=== PATIENT | male | born 1980 | race Caucasian/White ===

== ENCOUNTER 2016-11-26 11:37 | Emergency (ER) | payer MEDICARE, MEDICAID ==
[2016-11-26 11:44] VITALS: BP 146/79
[2016-11-26] MEDS ORDERED: Clindamycin CAP* 150 MG PO ONE (12:58)
--- NOTE | 2016-11-26 13:50 | ED ---
Skin Complaint - HPI Summary HPI Summary: Patient presents with a red bump on his abdomen that has become progressively painful over the last 5 days. He has a history of these bumps in the crease of his abdomen since having his gall bladder removed 2 years ago. He usually manages them by squeezing them and washing them, but this particular bump did not improve after he did this. Instead, it has become progressively painful. There has been drainage without increased redness. No fever, chills, N/V/D. - History of Current Complaint Chief Complaint: EDGeneral Time Seen by Provider: 11/26/16 11:57 Stated Complaint: ABSCESSES ON ABD Hx Obtained From: Patient Onset/Duration: Started Days Ago - 5 Timing: Constant Onset Severity: Mild Current Severity: Moderate Skin Location: Discrete, Abdomen Character: Pain, Redness, Raised Aggravating Symptom(s): Touch Alleviating Symptom(s): Nothing Associated Signs & Symptoms: Tenderness - Allergy/Home Medications Allergies/Adverse Reactions: Allergies Allergy/AdvReac Type Severity Reaction Status Date / Time Sulfamethoxazole Allergy Swelling Verified 01/11/13 11:21 w/Trimethoprim [From Bactrim] PMH/Surg Hx/FS Hx/Imm Hx Endocrine/Hematology History: Denies: Hx Diabetes Cardiovascular History: Reports: Hx Hypertension Denies: Hx Pacemaker/ICD Respiratory History: Reports: Hx Sleep Apnea - ?? NOT SURE GI History: Reports: Hx Gall Bladder Disease, Hx Gastroesophageal Reflux Disease - ON MEDICATION FOR, Hx Ulcer Musculoskeletal History: Reports: Hx Arthritis Sensory History: Denies: Hx Contacts or Glasses, Hx Hearing Aid Opthamlomology History: Denies: Hx Contacts or Glasses Neurological History: Reports: Hx Migraine - LAST ON 01/10/13-STATES HAS 3 CRUSHED VERTABRAE IN NECK Psychiatric History: Reports: Hx Depression - SLIGHT PER PATIENT Denies: Hx Panic Disorder - Surgical History Surgery Procedure, Year, and Place: APPENDECTOMY A CHILD-. LEFT KNEE SURGERY -[facility]. VASECTOMY-OFFICE. NECK SURGERY - Fusion with plate-WAY. GALLBLADDER -[facility] Hx Anesthesia Reactions: Yes - SEVERE N/V- LAST SURGERY- NECK SURGERY WAS PREMEDICATED- STATESWORKED WELL Infectious Disease History: No Infectious Disease History: Denies: Traveled Outside the [place] in Last 30 Days - Family History Known Family History: Positive: Hypertension - Social History Occupation: Employed Part-time Lives: With Family Alcohol Use: None Substance Use Type: Reports: None, Marijuana Smoking Status (MU): Never Smoked Tobacco Review of Systems Negative: Fever, Chills Positive: Other - pea sized lesion on suprapubic abdomen All Other Systems Reviewed And Are Negative: Yes Physical Exam Triage Information Reviewed: Yes Vital Signs On Initial Exam: Initial Vitals Temp Pulse Resp BP Pulse Ox 97.0 F 71 20 146/79 96 11/26/16 11:40 11/26/16 11:40 11/26/16 11:40 11/26/16 11:40 11/26/16 11:40 Appearance: Positive: Pain Distress, Obese Skin: Positive: Warm, Skin Color Reflects Adequate Perfusion, Dry, Tender - Pea size lesion without active drainage, Soft Head/Face: Positive: Normal Head/Face Inspection Eyes: Positive: EOMI, CASSY, Conjunctiva Clear ENT: Positive: Hearing grossly normal Respiratory/Lung Sounds: Positive: Breath Sounds Present Cardiovascular: Positive: RRR Abdomen Description: Positive: Soft. Negative: Distended, Guarding Bowel Sounds: Positive: Present Neurological: Positive: Sensory/Motor Intact, Alert, Oriented to Person Place, Time, NV Bundle Intact Distally, Normal Gait Psychiatric: Positive: Affect/Mood Appropriate AVPU Assessment: Alert Diagnostics - Vital Signs Vital Signs Temp Pulse Resp BP Pulse Ox 11/26/16 11:40 97.0 F 71 20 146/79 96 - Laboratory Lab Statement: Any lab studies that have been ordered have been reviewed, and results considered in the medical decision making process. Course/Dx - Differential Diagnoses - Skin Complaint Differential Diagnoses: Abscess, Cellulitis, Contact Dermatitis, Local Allergic Reaction, MRSA, Urticaria - Diagnoses Provider Diagnoses: Abscess Discharge - Discharge Plan Condition: Stable Disposition: HOME Prescriptions: Clindamycin Cap(NF) [Cleocin 300 mg Cap(NF)] 300 mg PO QID #39 cap Ondansetron ODT TAB* [Zofran Odt TAB*] 4 mg PO Q8H PRN #9 tab.odt PRN Reason: Nausea Patient Education Materials: MRSA (Methicillin Resistant Staphylococcus Aureus ) (ED) Referrals: Beth Meléndez PA [Primary Care Provider] - Additional Instructions: Please take the medication provided until it is completely gone. Use soap and water washes with warm compresses daily over your wound. Follow-up with a primary care provider or call the number provided to establish care with a regular provider. Return to the emergency department if your symptoms worsen.
== END 2016-11-26 14:33 | disposition home or self-care (01) ==
LOC: ED 11:37
DX: R11.0 Nausea (principal)
CPT/HCPCS: 99282; A9270-GY

== ENCOUNTER 2017-05-18 13:06 | Emergency (ER) | payer MEDICAID, MEDICARE ==
[2017-05-18] MEDS ORDERED: Ketorolac INJ* 30 MG/ML 1 ML VIAL IV ONE (14:24)
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
--- NOTE | 2017-05-18 14:46 | RAD ---
INDICATION: Left shoulder injury COMPARISON: None TECHNIQUE: Routine frontal, Y and axial views were obtained. FINDINGS: The bony structures, joint spaces, and soft tissues are normal for age. IMPRESSION: NEGATIVE EXAMINATION.
--- NOTE | 2017-05-18 14:47 | RAD ---
INDICATION: Left elbow injury COMPARISON: None TECHNIQUE: AP, lateral, and oblique views were obtained. FINDINGS: The bony structures, joint spaces, and soft tissues are normal for age. IMPRESSION: NO ACUTE BONY FINDINGS.
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
[2017-05-18] MEDS ORDERED: HYDROmorphone* 1 MG/ML 1 ML SYR IV ONE (15:56)
[2017-05-18] MEDS ORDERED: Ondansetron INJ* 2 MG/ML VIAL IV ONE (15:56)
[2017-05-18 17:20] VITALS: BP 106/63
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
== END 2017-05-18 17:38 | disposition home or self-care (01) ==
LOC: ED 13:06
DX: S49.92XA Unspecified injury of left shoulder and upper arm, initial encounter (principal); S63.501A Unspecified sprain of right wrist, initial encounter; S16.1XXA Strain of muscle, fascia and tendon at neck level, initial encounter; V58.5XXA Driver of pick-up truck or van injured in noncollision transport accident in traffic accident, initial encounter; Y93.89 Activity, other specified; Y92.9 Unspecified place or not applicable; M50.30 Other cervical disc degeneration, unspecified cervical region
CPT/HCPCS: 71020; 72050; 96374; 96375; 99283; J1170; J1885; J2405

== ENCOUNTER 2017-05-19 19:42 | Emergency (ER) | payer MEDICAID, MEDICARE ==
[2017-05-19 20:14] LABS: Hematocrit 46 % (42-52); Hemoglobin 15.2 g/dl (14.0-18.0); Mean Corpuscular HGB Conc 33 g/dl (31-36); Mean Corpuscular Hemoglobin 30 pg (27-31); Mean Corpuscular Volume 91 fL (80-94); Mean Platelet Volume 9 um3 (7.4-10.4); Red Blood Count 5.04 10^6/ul (4.0-5.4); Red Cell Distribution Width 15 % (10.5-15)
[2017-05-19 20:22] LABS: Add Diff/Slide Review? Slide Review Added; Comments Flag Yes
[2017-05-19] MEDS ORDERED: oxyCODONE/Acetamin 5/325 MG* TAB PO ONE (20:24)
[2017-05-19 20:30] LABS: Albumin 4.2 g/dL (3.2-5.2); BUN/Creatinine Ratio 15.3 (8-20); C Reactive Protein 69.01 mg/L (< 5.00); EGFR African American 111.3 (>60); EGFR Non-African American 86.5 (>60); Globulin 2.8 g/dL (2-4); Potassium 3.7 mmol/L (3.5-5.0); Total Bilirubin 0.7 mg/dL (0.2-1.0)
[2017-05-19 20:49] LABS: Eosinophils % 1 % (0-6); Neutrophil % 61 % (38-83); RBC Morphology Normal (Normal); Reactive Lymph % 3 % (0-6)
[2017-05-19 21:11] VITALS: BP 120/62
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
== END 2017-05-19 21:09 | disposition home or self-care (01) ==
LOC: ED 19:42
DX: S47.2XXA Crushing injury of left shoulder and upper arm, initial encounter (principal); V49.9XXA Car occupant (driver) (passenger) injured in unspecified traffic accident, initial encounter; Y93.89 Activity, other specified; Y92.9 Unspecified place or not applicable; Y99.8 Other external cause status
CPT/HCPCS: 36415; 80053; 82550; 83605; 85025; 86140; 99282; A9270-GY

== ENCOUNTER 2017-09-09 09:46 | Day surgery (SDC) | payer OTHER ==
[~2017-09-09 09:46] MED LIST: Buffered Lidocaine 0.9% SYRIN* 5 ML/SYR SYRINGE INTRADERM ONE; Dexamethasone IV* 4 MG/ML 1 ML (4 MG) IV SLOW PU ONE; Dexamethasone IV* 4 MG/ML 1 ML (4 MG) ONE; DiMENhydriNATE IV* 50 MG/ML VIAL ONE; Famotidine IV* 10 MG/ML 2 ML (20 mg) IV ONE; Ketorolac INJ* 30 MG/ML 1 ML VIAL ONE; Levalbuterol 0.63MG/3ML NEB* UNIT OF USE INH ONE; Lidocaine 2% PF * 5 ML VIAL ONE; Midazolam* 1 MG/ML 10 ML VIAL (10 MG) ONE; Ondansetron INJ* 2 MG/ML VIAL ONE; Propofol* 10 MG/ML 20 ML BTL IV PUSH ONE; Scopolamine 1.5 mg* PATCH TRANSDERM SCH; Scopolamine PATCH Remove* 1 NOTE MISC PATCH OFF SCH; fentaNYL* 50 MCG/ML 2 ML VIAL (100 MCG VIAL) ONE
[2017-09-09] MEDS ORDERED: ceFAZolin 2 GM PREMIX (*) 2 GM/50 ML BAG IVPB ONE (10:07)
[2017-09-09] MEDS ORDERED: Famotidine IV* 10 MG/ML 2 ML (20 mg) ONE (10:07)
[2017-09-09] MEDS ORDERED: Buffered Lidocaine 0.9% SYRIN* 5 ML/SYR SYRINGE ONE (10:08)
[2017-09-09] MEDS ORDERED: ceFAZolin 1 GM ADVAN(*) 1 GM ADDV.VIAL IVPB ONE (12:10)
[2017-09-09] MEDS ORDERED: ROPIVACAINE 5 MG/ML 30 ML BTL (0.5%) ONE (12:11)
[2017-09-09] MEDS ORDERED: Lidocaine 2% PF * 5 ML VIAL ONE (12:11)
[2017-09-09] MEDS ORDERED: Bupivacaine 0.25% SDV* 30 ML ONE (12:22)
[2017-09-09] MEDS ORDERED: KETAMINE HCL* 50 MG/ML 10 ML VIAL ONE (12:36)
[2017-09-09] MEDS ORDERED: fentaNYL* 50 MCG/ML 2 ML VIAL (100 MCG VIAL) ONE ×3 (12:49→15:47)
[2017-09-09] MEDS ORDERED: Scopolamine 1.5 mg* PATCH ONE (12:49)
[2017-09-09] MEDS ORDERED: Propofol* 10 MG/ML 20 ML BTL IV PUSH ONE (12:57)
[2017-09-09] MEDS ORDERED: fentaNYL* 50 MCG/ML 2 ML VIAL (100 MCG VIAL) IV PRN (14:35)
[2017-09-09] MEDS ORDERED: oxyCODONE TAB* 5 MG TAB PO PRN (14:35)
[2017-09-09] MEDS ORDERED: DiMENhydriNATE IV* 50 MG/ML VIAL IV PUSH PRN (14:35)
[2017-09-09] MEDS ORDERED: Labetalol IV* 5 MG/ML 20 ML VIAL ONE (14:40)
[2017-09-09] MEDS ORDERED: oxyCODONE TAB* 5 MG TAB ONE (16:29)
[2017-09-09 17:13] VITALS: BP 166/93
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
== END 2017-09-09 16:30 | disposition home or self-care (01) ==
LOC: OR 09:46
PROVIDERS: ATTEND Orthopaedic Surgery
DX: S46.012A Strain of muscle(s) and tendon(s) of the rotator cuff of left shoulder, initial encounter (principal); S43.492A Other sprain of left shoulder joint, initial encounter; I10 Essential (primary) hypertension; G47.33 Obstructive sleep apnea (adult) (pediatric); F17.210 Nicotine dependence, cigarettes, uncomplicated; I95.9 Hypotension, unspecified; F41.9 Anxiety disorder, unspecified; M54.9 Dorsalgia, unspecified; Z79.891 Long term (current) use of opiate analgesic; X50.0XXA Overexertion from strenuous movement or load, initial encounter; Y93.9 Activity, unspecified; Y92.9 Unspecified place or not applicable
CPT/HCPCS: A9270-GY; C1713; C1776; J0690; J1100; J1240; J1885; J2250; J2405; J2704; J2795; J3010